=== PATIENT | female | born 1975 | race Two or more races ===

== ENCOUNTER 2018-03-03 15:31 | Emergency (ER) | payer OTHER ==
[~2018-03-03] VITALS: Ht 157.5 cm; Wt 65.8 kg
== END 2018-03-03 19:42 | disposition home or self-care (01) ==
LOC: ER 15:31
DX: T15.01XA Foreign body in cornea, right eye, initial encounter (principal); T49.8X1A Poisoning by other topical agents, accidental (unintentional), initial encounter; H57.11 Ocular pain, right eye; Y92.59 Other trade areas as the place of occurrence of the external cause; Y93.89 Activity, other specified; Y99.8 Other external cause status

== ENCOUNTER 2023-01-23 14:34 | Inpatient (IN) | payer OTHER ==
[~2023-01-23] VITALS: Ht 157.5 cm; Wt 56.7 kg
--- NOTE | 2023-01-23 15:56 | NUR ---
PTE SE OBSERVA A/O X4. PTE VERBALIZA QUE DESDE HACE 2 CHRISTIE LLEVA CON ARDOR EN LA ORINA Y PRESENTO UN POCO DE ALBERTINA. PTE VERBALIZA QUE LE DUELE AL ORINAR.
--- NOTE | 2023-01-23 18:02 | NUR ---
PTE EVALUADA POR DR FAUSTINO [place] [facility]. SE EDUCA A PTE SOBRE EL MISMO. SE COLECTAN MUESTRAS DE LABORATORIO BAJO MEDIDAS ASEPTICAS Y SE ADMINISTRAN MEDICAMENTOS GINGER ORDEN
--- NOTE | 2023-01-23 23:41 | NUR ---
PTE ALERTA Y ORIENTADA X3 [place], PTE REFIERE QUE SE QUIERE IR DEL HOSPITAL. SE EDUCA DE LA IMPORTANCIA DEL TRATAMIENTO MEDICO. LA MISMA REFIERE ENTENDER Y REFIERE QUE AUN ASI QUIERE FIRMAR LA HOJA DE EXONERACION. PTE SE VA DEL [facility]ITAL AMB[facility]AND[facility].
== END 2023-01-24 | disposition left against medical advice (07) | DRG 683 ==
LOC: ER 14:34 → MEDJ 22:14 → SEC-K 23:55
PROVIDERS: ADMIT Specialist; ATTEND Specialist
PROC: BW40ZZZ Ultrasonography of Abdomen (ICD-10-PCS; principal; 2023-01-23)
DX: N17.9 Acute kidney failure, unspecified (principal); N39.0 Urinary tract infection, site not specified; R50.9 Fever, unspecified; Z20.822 Contact with and (suspected) exposure to COVID-19